=== PATIENT | female | born 1985 | race African-American/Black ===

== ENCOUNTER 2024-04-23 18:59 | Emergency (ER) | payer OTHER ==
[~2024-04-23] VITALS: Ht 170.2 cm; Wt 89.5 kg
[2024-04-23] MEDS: LIDOcaine 5% patch TP STA (20:48)
[2024-04-23] MEDS: acetaminophen 325mg tablet PO ONE (20:48)
[2024-04-23] MEDS: ibuprofen tablet 400 MG TABLET PO ONE (20:48)
[2024-04-23 21:34] VITALS: BP 124/65; PULSE 89; RESP 16; O2SAT 98
== END 2024-04-23 21:41 | disposition home or self-care (01) ==
LOC: ER 19:00
DX: M25.551 Pain in right hip (principal); Z59.01 Sheltered homelessness
CPT/HCPCS: 99284